=== PATIENT | male | born 1955 | race Caucasian/White ===

== ENCOUNTER 2023-10-17 09:43 | Outpatient (CLI) | payer MEDICARE | END 2023-10-17 09:44 | disposition home or self-care (01) | LOC: NAV RAD 09:43 | PROVIDERS: ATTEND Student in an Organized Health Care Education/Training Program | DX: R05.3 Chronic cough (principal); R06.02 Shortness of breath; R06.09 Other forms of dyspnea | CPT/HCPCS: 71046 ==